=== PATIENT | male | born 1965 | race African-American/Black ===

== ENCOUNTER 2017-07-04 07:56 | Emergency (ER) | payer SELFPAY ==
[2017-07-04] MEDS ORDERED: Acetaminophen 500 MG TAB ONE ×2 (08:26)
--- NOTE | 2017-07-04 09:26 | RAD ---
RADIOGRAPH CHEST 2 VIEWS: HISTORY: 51-year-old male with cough. FINDINGS: The thoracic aorta is tortuous and ectatic. There is no evidence of air space density, pneumothorax, or pulmonary edema. There is no cardiomegaly or pleural effusion. IMPRESSION: 1) No acute cardiopulmonary findings. 2) Ectasia of thoracic aorta. cece POS: PREET
== END 2017-07-04 10:06 | disposition home or self-care (01) ==
LOC: ERS 07:56
DX: B34.9 Viral infection, unspecified (principal); E11.9 Type 2 diabetes mellitus without complications; Z79.84 Long term (current) use of oral hypoglycemic drugs
CPT/HCPCS: 36416; 71046